=== PATIENT | male | born 1950 | race Caucasian/White ===

== ENCOUNTER 2017-02-15 12:58 | Emergency (ER) | payer OTHER ==
[2015-07-18 09:50] VITALS: BMI 28.6
[~2017-02-15 12:58] MED LIST: ALBUTEROL2.5 MG/3 M; CARDIZEM60 MG PO; COMBIVENT RESPIM4 GM INH; CORDARONE200 MG PO; EFFIENT10 MG PO; FOLIC ACID1 MG PO; IBUPROFEN800 MG PO; IPRAT-ALBUT 0.5-3 ML UPD; LASIX INJ40 MG/4 ML IV; LASIX20 MG PO; LASIX40 MG; METOPROLOL TAR100 M1 PO; PRAVACHOL20 MG PO; PRINZIDE 20-251 TA1 PO; SYMBICORT 16010.2 GM INH; XANAX1 MG PO; XARELTO20 MG PO; ZOFRAN4 MG PO
[2017-02-15 14:01] LABS: BASOPHILS 0 % (0-2); EOSINOPHILS 1.2 % (0-7); HEMOGLOBIN 7.8 g/dL (13.5-17.5); IMMATURE GRANULOCYTES 0.6 % (0-5); LYMPHOCYTES 15.3 % (15-50); MCH 18.8 pg (26.0-34.0); MCHC 27.9 g/dL (31.0-37.0); MCV 67.5 fL (80.0-100.0); MEAN PLATELET VOLUME 9.3 fL (7.4-10.4); MONOCYTES 7.3 % (2-11); NEUTROPHILS 75.6 % (40-80); PLATELET COUNT 275 10x3/uL (130-400); RBC 4.15 10x6/uL (4.20-6.10); RDW 23.7 % (11.5-14.5); WBC 9.3 10x3/uL (4.8-10.8)
[2017-02-15 14:21] LABS: ALBUMIN 3.1 g/dL (3.4-5.0); ANION GAP 5.1 mmol/L (8-16); BILIRUBIN - TOTAL 0.33 mg/dL (0.2-1.3); CALCIUM 8.5 mg/dL (8.5-10.1); CREATININE - SERUM 1.3 mg/dL (0.6-1.3); POTASSIUM - SERUM 4.1 mmol/L (3.5-5.1); PROTEIN - SERUM 6.4 g/dL (6.4-8.2)
[2017-02-15 14:33] LABS: APPEARANCE CLEAR (CLEAR); BILIRUBIN NEGATIVE (NEGATIVE); COLOR STRAW (YELLOW); GLUCOSE NEGATIVE (NEGATIVE); KETONE NEGATIVE (NEGATIVE); LEUKOCYTE ESTERASE NEGATIVE (NEGATIVE); NITRITE NEGATIVE (NEGATIVE); PROTEIN NEGATIVE (NEGATIVE); SPECIFIC GRAVITY 1.005 (1.005-1.020); UROBILINOGEN NORMAL (NORMAL)
== END 2017-02-15 19:04 | disposition short-term general hospital (02) ==
LOC: D.ER 12:58
PROVIDERS: Emergency Medicine
DX: I48.91 Unspecified atrial fibrillation (principal); I50.9 Heart failure, unspecified; J44.9 Chronic obstructive pulmonary disease, unspecified; F12.90 Cannabis use, unspecified, uncomplicated

== ENCOUNTER 2018-12-29 15:36 | Emergency (ER) | payer OTHER ==
[~2018-12-29] VITALS: Ht 190.5 cm; Wt 101.4 kg
[2018-12-29 15:43] VITALS: Ht 190.5 cm; Wt 101.4 kg
[2018-12-29 16:09] LABS: BASOPHILS 0.1 % (0-2); EOSINOPHILS 1.4 % (0-7); HEMATOCRIT 42.8 % (42.0-54.0); HEMOGLOBIN 14.7 g/dL (13.5-17.5); IMMATURE GRANULOCYTES 0.3 % (0-5); LYMPHOCYTES 14.7 % (15-50); MCH 32.8 pg (26.0-34.0); MCHC 34.3 g/dL (31.0-37.0); MCV 95.5 fL (80.0-100.0); MEAN PLATELET VOLUME 11.1 fL (7.4-10.4); MONOCYTES 6.4 % (2-11); NEUTROPHILS 77.1 % (40-80); RBC 4.48 10x6/uL (4.20-6.10); RDW 14.8 % (11.5-14.5); WBC 10.9 10x3/uL (4.8-10.8)
[2018-12-29 16:17] LABS: APTT 25.4 SECONDS (22.8-39.4); INR 1.02 (0.85-1.17); PROTIME 12.9 SECONDS (11.6-15.0)
[2018-12-29 16:19] LABS: D-DIMER-QUANTITATIVE 1.19 ug/mLFEU (0.20-0.54)
[2018-12-29 16:31] LABS: ALBUMIN 3.8 g/dL (3.4-5.0); ALKALINE PHOSPHATASE 50 U/L (46-116); ALT (SGPT) 19 U/L (10-68); BILIRUBIN - TOTAL 0.35 mg/dL (0.2-1.3); CALC OSMOLALITY 279 mosm/kg (275-300); CALCIUM 8.7 mg/dL (8.5-10.1); CARBON DIOXIDE 25.5 mmol/L (21.0-32.0); CHLORIDE - SERUM 104 mmol/L (98-107); GLUCOSE 104 mg/dL (74-106); POTASSIUM - SERUM 3.8 mmol/L (3.5-5.1); PROTEIN - SERUM 7.4 g/dL (6.4-8.2); SODIUM 139 mmol/L (136-145); UREA NITROGEN 17 mg/dL (7-18); eGFR NON AFRICAN AMERICAN 78 mL/min (90-120)
[2018-12-29 16:47] LABS: CKMB 3.7 U/L (0.0-3.6); CREATINE KINASE 153 UL (21-232); MAGNESIUM - SERUM 2.1 mg/dL (1.8-2.4); TROPONIN-I < 0.017 ng/mL (0.000-0.060)
[2018-12-29 16:48] LABS: PLATELET COUNT 182 10x3/uL (130-400)
[2018-12-29 18:40] VITALS: BP 131/101
== END 2018-12-29 20:15 | disposition other institution (70) ==
LOC: D.ER 15:36
PROVIDERS: Family Medicine
DX: I48.91 Unspecified atrial fibrillation (principal)

== ENCOUNTER 2019-09-29 13:20 | Emergency (ER) | payer OTHER ==
[~2019-09-29] VITALS: Ht 190.5 cm; Wt 88.6 kg
[2019-09-29 13:32] VITALS: Ht 190.5 cm; Wt 88.6 kg
[2019-09-29] MEDS ORDERED: TOPROL XL25 MG (13:33)
[2019-09-29] MEDS ORDERED: ELIQUIS2.5 MG PO (13:33)
[2019-09-29] MEDS ORDERED: LANOXIN125 MCG PO (13:33)
[2019-09-29 14:43] LABS: BASOPHILS 0.1 % (0-2); EOSINOPHILS 0.8 % (0-7); HEMATOCRIT 49.9 % (42.0-54.0); HEMOGLOBIN 16.6 g/dL (13.5-17.5); IMMATURE GRANULOCYTES 0.4 % (0-5); LYMPHOCYTES 16.4 % (15-50); MCH 32.3 pg (26.0-34.0); MCHC 33.3 g/dL (31.0-37.0); MCV 97.1 fL (80.0-100.0); NEUTROPHILS 73.3 % (40-80); PLATELET COUNT 217 10x3/uL (130-400); RBC 5.14 10x6/uL (4.20-6.10); RDW 15.2 % (11.5-14.5); WBC 13.5 10x3/uL (4.8-10.8)
[2019-09-29 14:50] LABS: ANION GAP 6.7 mmol/L (8-16); CALCIUM 9.1 mg/dL (8.5-10.1); CARBON DIOXIDE 34.3 mmol/L (21.0-32.0); CREATININE - SERUM 1.1 mg/dL (0.6-1.3)
[2019-09-29 14:54] LABS: APPEARANCE CLEAR (CLEAR); BILIRUBIN NEGATIVE (NEGATIVE); COLOR YELLOW (YELLOW); GLUCOSE NEGATIVE (NEGATIVE); KETONE NEGATIVE (NEGATIVE); NITRITE NEGATIVE (NEGATIVE); PROTEIN NEGATIVE (NEGATIVE); UROBILINOGEN NORMAL (NORMAL)
[2019-09-29 14:56] LABS: ALBUMIN 3.5 g/dL (3.4-5.0); BILIRUBIN - TOTAL 0.38 mg/dL (0.2-1.3); PROTEIN - SERUM 7.2 g/dL (6.4-8.2)
[2019-09-29 15:08] LABS: APTT 29.6 SECONDS (22.8-39.4)
[2019-09-29 15:30] LABS: INR 1.02 (0.85-1.17); PROTIME 12.9 SECONDS (11.6-15.0)
[2019-09-29] MEDS ORDERED: ACETAMINOPHEN500 M1 PO (15:38)
[2019-09-29] MEDS ORDERED: CYCLOBENZAPRINE10 MG PO (15:38)
[2019-09-29] MEDS ORDERED: IBUPROFEN800 MG PO (15:38)
[2019-09-29 16:28] VITALS: BP 159/88
== END 2019-09-29 16:28 | disposition home or self-care (01) ==
LOC: D.ER 13:20
PROVIDERS: Family Medicine
DX: M79.18 Myalgia, other site (principal); V89.2XXA Person injured in unspecified motor-vehicle accident, traffic, initial encounter; Y93.9 Activity, unspecified; Y92.9 Unspecified place or not applicable; I10 Essential (primary) hypertension; Z72.0 Tobacco use; M54.2 Cervicalgia